=== PATIENT | male | born 1980 | race Caucasian/White ===

== ENCOUNTER 2022-04-29 14:59 | Outpatient (CLI) | payer OTHER, SELFPAY ==
[2022-04-29 22:23] LABS: Cholesterol* 185 mg/dL (90-199)
[2022-04-29 22:24] LABS: HDL Cholesterol* 37 mg/dL (>=40); LDL Cholesterol Calculated 115 mg/dL (<100); Triglycerides* 164 mg/dL (40-149)
== END 2022-04-29 15:00 | disposition home or self-care (01) ==
LOC: LKVREF 15:01
PROVIDERS: PCP Family Medicine; Visit Provider Family Medicine
DX: Z00.00 Encounter for general adult medical examination without abnormal findings (principal); E78.00 Pure hypercholesterolemia, unspecified; R31.9 Hematuria, unspecified
CPT/HCPCS: 80061

== ENCOUNTER 2022-05-17 10:30 | Outpatient (RCR) | payer OTHER, SELFPAY | END 2022-06-10 11:23 | disposition home or self-care (01) | PROVIDERS: PCP Family Medicine; Visit Provider Orthopaedic Surgery Sports Medicine | DX: M17.0 Bilateral primary osteoarthritis of knee (principal); Z51.89 Encounter for other specified aftercare | CPT/HCPCS: 97110; 97140; 97162 ==

== ENCOUNTER 2024-07-26 14:58 | Outpatient (CLI) | payer OTHER, SELFPAY ==
--- NOTE | 2024-08-10 08:33 | W.PM.SLEEP ---
Sleep Study Details Details Interpreting Provider: Zen Date of Sleep Study: 07/26/24 Sleep Study Details: STUDY TYPE:? Home unattended ? BMI:? 27.5 ORDERING PROVIDER:? Zen INDICATION:? Concern about sleep apnea ? SLEEP SUMMARY:? 512 minutes monitored RESPIRATORY SUMMARY:? AHI 22.7 Low oxygen 78 25.9% of study oxygen less than 90% Snoring 100% PERIODIC LIMB MOVEMENTS OF SLEEP:? Not recorded CARDIAC:? Range 57-94, mean 68.1 beats per minute IMPRESSION:? Moderate obstructive sleep apnea with significant desaturations RECOMMENDATION: Treatment options include CPAP, dental appliance and/or airway expansion surgery.
== END 2024-07-26 14:59 | disposition home or self-care (01) ==
LOC: SLEEP 15:00
PROVIDERS: PCP Family Medicine; Visit Provider Otolaryngology
DX: G47.33 Obstructive sleep apnea (adult) (pediatric) (principal)
CPT/HCPCS: 95806

== ENCOUNTER 2025-01-03 18:44 | Outpatient (CLI) | payer OTHER, SELFPAY | END 2025-01-03 18:45 | disposition home or self-care (01) | PROVIDERS: PCP Family Medicine; Visit Provider Family Medicine | DX: A69.23 Arthritis due to Lyme disease (principal) | CPT/HCPCS: 86140; 86615; 86618 ==